=== PATIENT | female | born 1970 | race Caucasian/White ===

== ENCOUNTER 2016-07-22 13:03 | Emergency (ER) | payer OTHER | END 2016-07-22 14:28 | disposition home or self-care (01) | LOC: ER 13:03 | DX: R51 Headache (principal); W22.8XXA Striking against or struck by other objects, initial encounter; Y92.838 Other recreation area as the place of occurrence of the external cause; F17.210 Nicotine dependence, cigarettes, uncomplicated; I10 Essential (primary) hypertension; G51.0 Bell's palsy; Z79.891 Long term (current) use of opiate analgesic; Z79.899 Other long term (current) drug therapy; Z88.8 Allergy status to other drugs, medicaments and biological substances | CPT/HCPCS: 70450; 96372; 99284-25 ==